=== PATIENT | male | born 1990 | race Asian ===

== ENCOUNTER → 2017-12-27 | Day surgery (SDC) | payer OTHER ==
[~2017-12-27] VITALS: Ht 170.2 cm; Wt 81.0 kg
[~2017-12-27] MED LIST: *morphine SULFATE 10 MG/ML PERIprocedure ONLY ONE; ACETAMINOPHEN 1000 MG/100 ML 100 ML IV ONE; BUPIVACAINE HCL PF 0.5% 30 ML VIAL ONE; BUPIVACAINE LIPOSOME PF 1.3% 20 ML VIAL ONE; BUPIVACAINE/EPINEPHRINE 0.5% PF 10 ML VIAL ONE; CHLORHEXIDINE GLUCONATE 2 % 1 PACK (2 CLOTHS) TOPICAL PRN; CHLORHEXIDINE GLUCONATE 4% SOLN 120 ML BTL TOPICAL SCH; DEXAMETHASONE SOD PHOS 4 MG/ML VIAL IV ONE; DO NOT ADM ANY ANTICOAGULANT DRUGS PRN; EPINEPHrine HCL (1:1000) 1 MG/ML VIAL ONE; EPINEPHrine HCL (1:1000) 30 MG/30 ML VIAL ONE; FAMOTIDINE 20 MG/2 ML VIAL ONE; LACTATED RINGER'S 1000 ML IV PRN; LIDOCAINE HCL 1% PF 5 ML SYRINGE OTHER ONE; METOPROLOL TARTRATE 25 MG TAB PO PRN; MIDAZOLAM HCL 2 MG/2 ML VIAL ONE; ONDANSETRON HCL 4 MG/2 ML VIAL IV PUSH ONE; PERC5TAB12 PO; POVIDONE IODINE 5% (ANTISEPSIS KIT) 4 APPLICATIONS EACH NARE PRN; POVIDONE IODINE 7.5% SCRUB 118 ML BOTTLE TOPICAL SCH; PROPOFOL 200 MG/20 ML AMP IV ONE; SODIUM CHLORID 0.9% 500 ML IV PRN; ceFAZolin 2 GM/DEX PREMIX 50 ML IV SCH; ceFAZolin INJ 1,000 MG VIAL ONE; ePHEDrine/NS 25 MG/5 ML SYRINGE IV ONE
--- NOTE | 2017-12-27 10:09 | MP ---
cc: Chalo Latif MD DATE OF OPERATION: 12/27/2017 PREOPERATIVE DIAGNOSIS: Left knee anterior cruciate ligament tear, left knee lateral meniscus tear. POSTOPERATIVE DIAGNOSIS: Left knee anterior cruciate ligament tear, left knee lateral meniscus tear. PROCEDURE: Left knee anterior cruciate ligament arthroscopic assisted allograft reconstruction, left knee arthroscopic partial lateral meniscectomy. SURGEON: Chalo Latif MD. TRANSITION COACH: BRANDI Marcano. ANESTHESIA: General with a femoral nerve block. ESTIMATED BLOOD LOSS: Less than 50 mL. TOURNIQUET TIME: Zero minutes. COMPLICATIONS: None. IMPLANTS USED: Arthrex. JUSTIFICATION: This patient is a 27-year-old male who injured his left knee resulting in the above named injury. He was evaluated by the undersigned at the [facility]. He did complain of pain and instability of symptoms. Clinical exam, as well as, MRI confirmed the above named findings. The patient was counseled as to the risks, benefits and alternatives to the above-named proposed surgical procedure and he did wish to proceed with surgery. PROCEDURE IN DETAIL: Written consent was obtained. The patient identified by name, taken to the operating room and placed supine on the operating room table and general anesthesia was administered, as well as 2 grams of IV Ancef. The left leg carefully placed in the well-padded leg mckeon. The left lower extremity was prepped and draped using Isopropyl alcohol, Hibiclens solution, ChloraPrep solution and DuraPrep solution. After a time-out was performed, a standard medial and lateral parapatellar arthroscopic portal was established. The patellofemoral joint revealed no significant chondromalacia. The medial compartment was free of meniscal pathology or chondromalacia. The intercondylar notch revealed a complete disruption of the anterior cruciate ligament. The posterior cruciate ligament was intact. Lateral compartment revealed an unstable radial tear with a complex pattern involving the posterolateral meniscus. An arthroscopic biter followed by an arthroscopic shaver was introduced into the lateral compartment to performed a partial lateral meniscectomy. The meniscal rim probed and noted to be stable. An arthroscope bur used to perform a notchplasty. The posterior wall was well visualized. The remaining ACL stump was removed with an arthroscopic shaver. An Arthrex retro-cutting tibial guide centered within the footprint of the sleetmute ACL was used to capture a guide pin and the tibial tunnel was retro-cut 10 mm in diameter. A shaver was used to clean soft tissue and bone debris from within the knee joint. The medial portal over the top femoral guide was placed from the medial portal onto the sleetmute ACL origin. The knee was hyperflexed and a guide pin was drilled at the superolateral aspect of the knee. Subsequently, a low profile cannulated 10 mm reamer was drilled to a depth of 25 mm. The shaver was again used to clean bone and soft tissue debris from the posterior portion of the knee joint. After drilling, a FiberLink suture was then shuttled from the tibial tunnel and exiting the femoral tunnel. On the back table, the posterior tibialis tendon allograft was thawed in antibiotic solution. Coleman Murrieta, Sweeping Compound Blender, Certified, fashioned the graft to a folded diameter of 10 mm. #2 FiberWire whipstitch was placed in the proximal and distal portions of the graft and the graft was pretensioned on the back table. Once prepared, an Arthrex tightrope anchor and loop was placed in the midportion of the graft. The sutures from the tightrope were placed through the eyelet of the FiberLink suture and then shuttled from the tibial tunnel and exiting the femoral tunnel. The tightrope anchor was then pulled from the tibial tunnel exiting the superolateral cortex of the femur and obtaining adequate purchase. Subsequently, the graft was then fully seated from the tibial tunnel into the femoral tunnel. The leg was taken through a full range of motion with no evidence of pistoning or impingement. With the leg held in near full extension, a guidewire was placed along the anterior border of the graft and an Arthrex 9 x 28 mm bioabsorbable interference screw was used for fixation on the tibial side. An intraoperative Mya exam was performed which was negative. The remaining graft from the tibial tunnel was removed with a 15 blade scalpel. The tibial incision was closed with 3-0 Vicryl suture. Remaining incisions closed with 3-0 Prolene suture. Sterile dressing applied. The patient tolerated the procedure well. No intraoperative complications noted. Colmean Murrieta, Physician Moore, Certified, present during the entire procedure to include patient positioning and the procedure itself. The medical necessity of a physician golf player assistant was indicated in this case due to the complexity of the procedure. He assisted with appropriate manipulation of the leg and also manipulation of the camera. He assisted with preparation of bone and implantation of the graft reconstruction and implantation of these anchors for fixation and also preparation of the graft prior to reconstruction. MD ABELARDO Lopez/INOCENCIA , 09:36 AM , 10:08 AM
[2017-12-27 11:42] VITALS: BP 128/75; PULSE 73; RESP 16; TEMP 97.4; O2SAT 100
== END | disposition home or self-care (01) ==
LOC: HSDC 05:34
PROVIDERS: ATTEND Orthopaedic Surgery Sports Medicine
DX: S83.512A Sprain of anterior cruciate ligament of left knee, initial encounter (principal); S83.282A Other tear of lateral meniscus, current injury, left knee, initial encounter; X50.9XXA Other and unspecified overexertion or strenuous movements or postures, initial encounter; Y93.66 Activity, soccer
CPT/HCPCS: 01400; 29881; 29888; 64447; 86850; 86900; 86901; C9290; E0113; J0131; J0171; J0690; J1100; J2250; J2270; J2405; J3010; J7120; L1830